=== PATIENT | male | born 1960 | race Caucasian/White ===

== ENCOUNTER 2024-09-24 20:13 | Inpatient (IN) | payer OTHER ==
[~2024-09-24] VITALS: Ht 185.4 cm; Wt 109.3 kg
[2024-09-24] MEDS: SODIUM CHLORIDE 0.9% (SEPSIS BOLUS) IV ONE (21:07)
[2024-09-24] MEDS: PIPERACILLIN/TAZO 3.375G/50ML 50 ML IV ONE (21:23)
[2024-09-24 21:37] LABS: HEMATOCRIT. 40.4 % (42.0-52.0); MEAN CORPUSCULAR HEMOGLOBIN 29.7 pg (28.0-32.0); MEAN CORPUSCULAR HGB CONC 32.3 g/dL (31.0-37.0); MEAN PLATELET VOLUME 10.5 fl (7.4-10.4); PLATELET 218 x1000/uL (130-400); RED BLOOD CELL COUNT 4.39 mill/uL (4.7-6.1); RED CELL DISTRIBUTION WIDTH 15.4 % (11.6-14.6); WHITE BLOOD COUNT 10.3 x1000/uL (4.5-11.0)
[2024-09-24 21:40] LABS: DIFFERENTIAL COMMENT 1
[2024-09-24 21:41] LABS: INR 1.2; PROTHROMBIN TIME 12.4 sec (9.6-11.0)
[2024-09-24 21:42] LABS: CHLORIDE 102 mEq/L (98-107); POTASSIUM 3.5 mEq/L (3.5-5.1); SODIUM 140 mEq/L (136-145)
[2024-09-24 21:43] LABS: CALCIUM 8.3 mg/dL (8.7-10.4); CARBON DIOXIDE 30 mEq/L (21-32)
[2024-09-24 21:48] LABS: CREATININE 0.9 mg/dL (0.6-1.3); GLUCOSE 99 mg/dL (70-105); UREA NITROGEN BLOOD 20 mg/dL (9-23)
[2024-09-24 21:50] LABS: ALANINE AMINOTRANSFERASE 77 IU/L (10-49); ALBUMIN 3.1 g/dL (3.2-4.8); ASPARTATE AMINOTRANSFERASE 30 IU/L (<34); BILIRUBIN DIRECT 0.5 mg/dL (<=3.0); PROTEIN TOTAL 5.7 g/dL (6.0-8.3)
[2024-09-24 22:08] LABS: ETHANOL BLOOD < 10 mg/dL (<10)
[2024-09-24 22:17] LABS: TROPONIN I HIGH SENSITIVITY 60 ng/L (3.0-53)
[2024-09-24 22:24] LABS: LACTIC ACID 3.8 mmol/L (0.4-2.0)
[2024-09-24] MEDS: VANCOMYCIN 1G PREMIX 200 ML IV ONE (22:58)
[2024-09-24 23:04] LABS: CLARITY URINE CLEAR (CLEAR); COLOR URINE YELLOW (YELLOW); GLUCOSE URINE NEGATIVE (NEGATIVE); KETONES URINE NEGATIVE (NEGATIVE); LEUKOCYTE ESTERASE URINE NEGATIVE (NEGATIVE); NITRITE URINE NEGATIVE (NEGATIVE); OCCULT BLOOD URINE NEGATIVE (NEGATIVE); PH URINE 6.5 (4.5-8.0); PROTEIN URINE NEGATIVE (NEGATIVE); SPECIFIC GRAVITY URINE 1.015 (1.005-1.030); UROBILINOGEN URINE 0.2 E.U./dL (0.2-1.0)
[2024-09-24 23:14] LABS: *AMPHETAMINES SCREEN URINE PRESUMPTIVE POSITIVE (NEGATIVE); *BARBITURATES SCREEN URINE NEGATIVE (NEGATIVE); *BENZODIAZEPINES SCREEN URINE NEGATIVE (NEGATIVE); *COCAINE SCREEN URINE NEGATIVE (NEGATIVE); METHADONE URINE SCREEN NEGATIVE (NEGATIVE); OPIATES URINE SCREEN NEGATIVE (NEGATIVE)
[2024-09-24 23:15] LABS: CANNABINOID URINE SCREEN PRESUMPTIVE POSITIVE (NEGATIVE); ECSTASY MDMA SCREEN URINE NEGATIVE (NEGATIVE); PHENCYCLIDINE URINE SCREEN NEGATIVE (NEGATIVE)
[2024-09-24] MEDS: FUROSEMIDE 40MG/4ML VIAL IVP ONE (23:53)
[2024-09-25 00:01] LABS: ANISOCYTOSIS 1+; PLATELET ESTIMATE NORMAL
[2024-09-25] MEDS ORDERED: IPRATROPIUM/ALBUTEROL 0.5-3(2.5)MG/3ML NEB HHN PRN (00:15)
[2024-09-25] MEDS ORDERED: ACETAMINOPHEN 325MG TABLET PO PRN (00:15)
[2024-09-25] MEDS ORDERED: CLONIDINE 0.1MG TABLET PO PRN (00:15)
[2024-09-25] MEDS ORDERED: DOCUSATE SODIUM 100MG CAPSULE PO PRN (00:15)
[2024-09-25] MEDS ORDERED: ONDANSETRON HCL 4MG/2ML INJ IV PRN (00:15)
[2024-09-25] MEDS ORDERED: MAGNESIUM/ALUMINUM HYDROXIDE/SIMETHICONE 30ML UDC PO PRN (00:15)
[2024-09-25] MEDS ORDERED: KETOROLAC 10MG TABLET PO PRN (00:30)
[2024-09-25] MEDS ORDERED: KETOROLAC 15MG/ML VIAL IV PRN (00:30)
[2024-09-25] MEDS: MORPHINE SULFATE 2 MG/ML INJ (NOT FOR IM USE) IV PRN (01:45)
[2024-09-25 01:47] LABS: IRON 29 ug/dL (65-175)
[2024-09-25 01:50] LABS: PHOSPHORUS 2.8 mg/dL (2.5-4.9); TOTAL IRON BINDING CAPACITY 251 ug/dl (250-425)
[2024-09-25 02:11] LABS: TROPONIN I HIGH SENSITIVITY 68 ng/L (3.0-53)
[2024-09-25] MEDS: LORAZEPAM 2MG/ML INJ IV PRN ×2 (03:22→15:49)
[2024-09-25 04:23] LABS: FERRITIN 108 ng/mL (22-322); VITAMIN B12 SERUM 728 pg/mL (211-911)
[2024-09-25 04:34] LABS: HEPATITIS B SURFACE ANTIGEN NEGATIVE (Negative)
[2024-09-25 04:55] LABS: HEPATITIS A AB IGM NEGATIVE (Negative); HEPATITIS B CORE AB IGM NEGATIVE (Negative)
[2024-09-25 04:56] LABS: HEPATITIS C AB NON REACTIVE (Neg) (Negative)
[2024-09-25] MEDS: PIPERACILLIN/TAZO 3.375G/50ML 50 ML IV SCH (06:05)
[2024-09-25] MEDS: MAGNESIUM 4 G PREMIX 100 ML IV NR (06:30)
[2024-09-25] MEDS: FOLIC ACID 1MG TABLET PO SCH (09:00)
[2024-09-25] MEDS: MULTIVITAMINS,THER W-MINERALS TABLET PO SCH (09:00)
[2024-09-25] MEDS: THIAMINE HCL 100MG TABLET PO SCH (09:00)
[2024-09-25] MEDS: FUROSEMIDE 40MG/4ML VIAL IV SCH (09:22)
[2024-09-25] MEDS: ENOXAPARIN 40MG/0.4ML SYR SUBCUT SCH (09:22)
[2024-09-25] MEDS: PANTOPRAZOLE SODIUM 40 MG/VIAL IV SCH (09:22)
[2024-09-25] MEDS: LABETALOL 5MG/ML 4ML INJ IV NR ×2 (09:50→11:25)
[2024-09-25] MEDS: FOLIC ACID 1 MG, THIAMINE HCL 100 MG, MVI, ADULT NO.1 10 ML in DEXTROSE 5% WATER 1,000 ML IV ONE (10:05)
[2024-09-25] MEDS: VANCOMYCIN 1.25GM/250ML 250 ML IV SCH (11:59)
[2024-09-25] MEDS ORDERED: CHLORDIAZEPOXIDE 5 MG CAPSULE PO SCH (14:00)
[2024-09-25] MEDS: CHLORDIAZEPOXIDE 25MG CAPSULE PO SCH (14:00)
[2024-09-25 16:11] VITALS: BP 141/99; PULSE 136; RESP 18; TEMP 36.5
[2024-09-25 16:19] VITALS: BP 141/99; PULSE 136; RESP 18; TEMP 36.5
[2024-09-25 20:00] VITALS: BP 145/122; PULSE 137; RESP 16; TEMP 36.6; O2SAT 94
[2024-09-25 22:14] LABS: CREATINE KINASE MB FRACTION 1.3 ng/mL (0.5-3.6)
[2024-09-26] VITALS (8 sets, daily range): BP systolic 121–154; BP diastolic 94–118; PULSE 137–149; RESP 16–25; TEMP 36.2–36.8; O2SAT 96–100
[2024-09-26 07:41] LABS: BASOPHILS % 0.7 % (0.0-2.0); EOSINOPHILS % 2.3 % (0.0-5.0); HEMATOCRIT. 39.7 % (42.0-52.0); HEMOGLOBIN. 12.8 g/dL (14.0-18.0); LYMPHOCYTES % 13.2 % (20.0-50.0); MEAN CORPUSCULAR HEMOGLOBIN 29.5 pg (28.0-32.0); MEAN CORPUSCULAR HGB CONC 32.2 g/dL (31.0-37.0); MEAN CORPUSCULAR VOLUME 91.7 fL (80.0-94.0); MEAN PLATELET VOLUME 10.8 fl (7.4-10.4); MONOCYTES % 8.7 % (2.0-8.0); NEUTROPHILS % 75.1 % (40.0-76.0); PLATELET 194 x1000/uL (130-400); RED BLOOD CELL COUNT 4.34 mill/uL (4.7-6.1); RED CELL DISTRIBUTION WIDTH 15.4 % (11.6-14.6); WHITE BLOOD COUNT 8.9 x1000/uL (4.5-11.0)
[2024-09-26] MEDS: LORAZEPAM 2MG/ML INJ IV NR (08:05)
[2024-09-26 08:29] LABS: CALCIUM 8.5 mg/dL (8.7-10.4); CHLORIDE 100 mEq/L (98-107); POTASSIUM 3.6 mEq/L (3.5-5.1); SODIUM 137 mEq/L (136-145)
[2024-09-26 08:30] LABS: CARBON DIOXIDE 31 mEq/L (21-32)
[2024-09-26 08:34] LABS: T4 FREE 1.06 ng/dL (0.89-1.76); THYROID STIMULATING HORMONE 2.44 uIU/mL (0.55-4.78)
[2024-09-26 08:35] LABS: CREATININE 0.8 mg/dL (0.6-1.3); GLUCOSE 95 mg/dL (70-105)
[2024-09-26 08:36] LABS: LDL CHOLESTEROL 59 mg/dL (5-100); TRIGLYCERIDE 51 mg/dL (0-150); UREA NITROGEN BLOOD 17 mg/dL (9-23)
[2024-09-26 08:37] LABS: CHOLESTEROL 104 mg/dL (<200); HDL CHOLESTEROL 32 mg/dL (>55)
[2024-09-26] MEDS: HALOPERIDOL 5MG TABLET PO PRN (17:33)
[2024-09-26] MEDS: CHLORDIAZEPOXIDE 25MG CAPSULE PO SCH (21:07)
[2024-09-26] MEDS: VANCOMYCIN 1.5GM/250ML IV SCH (21:52)
[2024-09-27] VITALS (7 sets, daily range): BP systolic 111–136; BP diastolic 79–118; PULSE 132–148; RESP 15–30; TEMP 36.4–36.8; O2SAT 97–100
[2024-09-27] MEDS: HALOPERIDOL LACTATE 5MG/ML VIAL IM PRN (09:08)
[2024-09-27] MEDS: METOPROLOL TARTRATE 25MG TABLET PO SCH (11:31)
[2024-09-27] MEDS: TAMSULOSIN HCL 0.4MG SR CAPSULE PO SCH (13:04)
[2024-09-27] MEDS: QUETIAPINE FUMARATE 50MG TABLET PO NR (13:05)
[2024-09-27] MEDS: QUETIAPINE FUMARATE 50MG TABLET PO SCH (21:14)
[2024-09-27] MEDS: DIPHENHYDRAMINE 50MG/ML VIAL IV PRN (21:16)
[2024-09-27] MEDS: LORAZEPAM 2MG/ML INJ IV PRN (21:16)
[2024-09-28] VITALS: BP 121/81; PULSE 140; RESP 20; TEMP 36.2; O2SAT 100
[2024-09-28] MEDS: DILTIAZEM HCL 5MG/ML 5ML VIAL IV NR (00:38)
[2024-09-28 01:55] LABS: CHLORIDE 99 mEq/L (98-107); POTASSIUM 3.3 mEq/L (3.5-5.1); SODIUM 140 mEq/L (136-145)
[2024-09-28 01:56] LABS: CALCIUM 8.8 mg/dL (8.7-10.4); CARBON DIOXIDE 33 mEq/L (21-32)
[2024-09-28 02:00] LABS: BASOPHILS % 0.6 % (0.0-2.0); DIFFERENTIAL COMMENT 0; EOSINOPHILS % 0.9 % (0.0-5.0); HEMATOCRIT. 39.3 % (42.0-52.0); HEMOGLOBIN. 12.8 g/dL (14.0-18.0); LYMPHOCYTES % 15.5 % (20.0-50.0); MEAN CORPUSCULAR HEMOGLOBIN 28.9 pg (28.0-32.0); MEAN CORPUSCULAR HGB CONC 32.7 g/dL (31.0-37.0); MEAN CORPUSCULAR VOLUME 88.6 fL (80.0-94.0); MEAN PLATELET VOLUME 10.5 fl (7.4-10.4); MONOCYTES % 11.5 % (2.0-8.0); NEUTROPHILS % 71.5 % (40.0-76.0); PLATELET 180 x1000/uL (130-400); RED BLOOD CELL COUNT 4.43 mill/uL (4.7-6.1); RED CELL DISTRIBUTION WIDTH 15.4 % (11.6-14.6); WHITE BLOOD COUNT 9.6 x1000/uL (4.5-11.0)
[2024-09-28 02:01] LABS: GLUCOSE 93 mg/dL (70-105); UREA NITROGEN BLOOD 21 mg/dL (9-23)
[2024-09-28] MEDS: MAGNESIUM 2 G PREMIX 50 ML IV NR ×2 (03:47→11:26)
[2024-09-28 04:00] VITALS: BP 100/75; PULSE 96; RESP 22; TEMP 36.4; O2SAT 100
[2024-09-28] MEDS ORDERED: KCL 20MEQ/100ML PREMIX 100 ML IV SCH (08:15)
[2024-09-28 08:19] VITALS: BP 134/114; PULSE 108; RESP 14; TEMP 36.7; O2SAT 100
[2024-09-28 08:30] LABS: BASOPHILS % 0.6 % (0.0-2.0); DIFFERENTIAL COMMENT 0; EOSINOPHILS % 0.9 % (0.0-5.0); HEMATOCRIT. 37.9 % (42.0-52.0); HEMOGLOBIN. 12.3 g/dL (14.0-18.0); LYMPHOCYTES % 12.7 % (20.0-50.0); MEAN CORPUSCULAR HEMOGLOBIN 29.2 pg (28.0-32.0); MEAN CORPUSCULAR HGB CONC 32.5 g/dL (31.0-37.0); MEAN CORPUSCULAR VOLUME 89.8 fL (80.0-94.0); MEAN PLATELET VOLUME 10.8 fl (7.4-10.4); MONOCYTES % 10.3 % (2.0-8.0); NEUTROPHILS % 75.5 % (40.0-76.0); PLATELET 166 x1000/uL (130-400); RED BLOOD CELL COUNT 4.22 mill/uL (4.7-6.1); RED CELL DISTRIBUTION WIDTH 15.5 % (11.6-14.6); WHITE BLOOD COUNT 9.8 x1000/uL (4.5-11.0)
[2024-09-28 08:32] LABS: CHLORIDE 101 mEq/L (98-107); POTASSIUM 3.3 mEq/L (3.5-5.1); SODIUM 141 mEq/L (136-145)
[2024-09-28 08:33] LABS: CALCIUM 8.6 mg/dL (8.7-10.4); CARBON DIOXIDE 31 mEq/L (21-32)
[2024-09-28 08:38] LABS: CREATININE 0.8 mg/dL (0.6-1.3); GLUCOSE 91 mg/dL (70-105); UREA NITROGEN BLOOD 21 mg/dL (9-23)
[2024-09-28 12:00] VITALS: BP 145/126; PULSE 101; RESP 18; TEMP 36.8; O2SAT 100
[2024-09-28] MEDS: POTASSIUM CHLORIDE 40MEQ in DEXT 5% WATER 250ML IV NR (13:00)
[2024-09-28] MEDS: METOPROLOL SUCCINATE 50MG ER TABLET PO SCH (13:00)
[2024-09-28 16:00] VITALS: BP 108/92; PULSE 96; RESP 12; TEMP 36.7; O2SAT 100
[2024-09-28 20:00] VITALS: BP 98/69; PULSE 89; RESP 20; TEMP 36.6; O2SAT 97
[2024-09-28 21:20] LABS: HEMATOCRIT 34.8 % (42.0-52.0); HEMOGLOBIN 11.1 g/dL (14.0-18.0); MEAN CORPUSCULAR HEMOGLOBIN 28.8 pg (28.0-32.0); MEAN CORPUSCULAR VOLUME 89.9 fL (80.0-94.0); PLATELET 161 x1000/uL (130-400); RED BLOOD CELL COUNT 3.87 mill/uL (4.7-6.1); RED CELL DISTRIBUTION WIDTH 15.1 % (11.6-14.6)
[2024-09-28 21:25] LABS: POTASSIUM 3.7 mEq/L (3.5-5.1)
[2024-09-28 21:34] LABS: AMMONIA 19 uMol/L (<32)
[2024-09-28] MEDS: CHLORDIAZEPOXIDE 25MG CAPSULE PO SCH (22:12)
[2024-09-29] VITALS: BP 98/80; PULSE 90; RESP 19; TEMP 36.2; O2SAT 99
[2024-09-29 04:00] VITALS: BP 107/98; PULSE 92; RESP 28; TEMP 36.8; O2SAT 100
[2024-09-29 06:50] LABS: DIFFERENTIAL COMMENT 0; EOSINOPHILS % 1.6 % (0.0-5.0); HEMATOCRIT. 32.3 % (42.0-52.0); HEMOGLOBIN. 10.6 g/dL (14.0-18.0); LYMPHOCYTES % 17.3 % (20.0-50.0); MEAN CORPUSCULAR HEMOGLOBIN 29.2 pg (28.0-32.0); MEAN CORPUSCULAR HGB CONC 32.8 g/dL (31.0-37.0); MEAN CORPUSCULAR VOLUME 88.9 fL (80.0-94.0); MEAN PLATELET VOLUME 11.2 fl (7.4-10.4); MONOCYTES % 8.2 % (2.0-8.0); NEUTROPHILS % 71.9 % (40.0-76.0); PLATELET 150 x1000/uL (130-400); RED BLOOD CELL COUNT 3.63 mill/uL (4.7-6.1); RED CELL DISTRIBUTION WIDTH 15.1 % (11.6-14.6)
[2024-09-29 06:55] LABS: CHLORIDE 101 mEq/L (98-107); SODIUM 144 mEq/L (136-145)
[2024-09-29 06:56] LABS: CALCIUM 8.5 mg/dL (8.7-10.4); CARBON DIOXIDE 35 mEq/L (21-32)
[2024-09-29 07:01] LABS: GLUCOSE 81 mg/dL (70-105)
[2024-09-29 07:02] LABS: UREA NITROGEN BLOOD 29 mg/dL (9-23)
[2024-09-29 08:00] VITALS: BP 102/79; PULSE 90; RESP 24; TEMP 36.6; O2SAT 96
[2024-09-29] MEDS ORDERED: KCL 20MEQ/100ML PREMIX 100 ML IV SCH (08:00)
[2024-09-29] MEDS: POTASSIUM CHLORIDE 20MEQ/PACKET PO NR (08:54)
[2024-09-29 12:00] VITALS: BP 98/68; PULSE 88; RESP 26; TEMP 36.7; O2SAT 98
[2024-09-29] MEDS: POTASSIUM CHLORIDE 40MEQ in DEXT 5% WATER 250ML IV NR (13:01)
[2024-09-29 16:00] VITALS: BP 95/75; PULSE 93; RESP 22; TEMP 36.6; O2SAT 99
[2024-09-29] MEDS: POTASSIUM CHLORIDE 20 MEQ in DEXT 5% WATER 240 ML IV NR (16:16)
[2024-09-29 20:00] VITALS: BP 124/80; PULSE 132; RESP 24; TEMP 36.5; O2SAT 96
[2024-09-29] MEDS ORDERED: OLANZAPINE 5MG TABLET ODT PO SCH (21:00)
[2024-09-29] MEDS: OLANZAPINE 5MG TABLET ODT PO SCH (21:45)
[2024-09-30] VITALS (38 sets, daily range): BP systolic 52–139; BP diastolic 35–126; PULSE 82–144; RESP 7–28; TEMP 36.4–37; O2SAT 93–100
[2024-09-30] MEDS: DILTIAZEM HCL 5MG/ML 5ML VIAL IV NR (05:57)
[2024-09-30 07:35] LABS: BASOPHILS % 1.1 % (0.0-2.0); DIFFERENTIAL COMMENT 0; EOSINOPHILS % 1.2 % (0.0-5.0); HEMATOCRIT. 28.6 % (42.0-52.0); HEMOGLOBIN. 9.2 g/dL (14.0-18.0); LYMPHOCYTES % 10.6 % (20.0-50.0); MEAN CORPUSCULAR HEMOGLOBIN 29.7 pg (28.0-32.0); MEAN CORPUSCULAR HGB CONC 32.3 g/dL (31.0-37.0); MEAN PLATELET VOLUME 11.3 fl (7.4-10.4); MONOCYTES % 6.4 % (2.0-8.0); NEUTROPHILS % 80.7 % (40.0-76.0); PLATELET 148 x1000/uL (130-400); RED BLOOD CELL COUNT 3.11 mill/uL (4.7-6.1); RED CELL DISTRIBUTION WIDTH 15.4 % (11.6-14.6); WHITE BLOOD COUNT 9.8 x1000/uL (4.5-11.0)
[2024-09-30 07:41] LABS: CARBON DIOXIDE 31 mEq/L (21-32); CHLORIDE 103 mEq/L (98-107); POTASSIUM 3.4 mEq/L (3.5-5.1); SODIUM 143 mEq/L (136-145)
[2024-09-30 07:43] LABS: CALCIUM 8.2 mg/dL (8.7-10.4)
[2024-09-30 07:47] LABS: GLUCOSE 92 mg/dL (70-105)
[2024-09-30 07:48] LABS: UREA NITROGEN BLOOD 28 mg/dL (9-23)
[2024-09-30 07:50] LABS: PHOSPHORUS 2.9 mg/dL (2.5-4.9)
[2024-09-30] MEDS: DIGOXIN 125MCG TABLET PO SCH (08:15)
[2024-09-30] MEDS: QUETIAPINE FUMARATE 50MG TABLET PO SCH (08:16)
[2024-09-30] MEDS ORDERED: NALOXONE HCL 0.4MG/ML VIAL IV PRN (08:30)
[2024-09-30] MEDS: LORAZEPAM 2MG/ML INJ IV PRN (10:31)
[2024-09-30] MEDS: POTASSIUM CHLORIDE 20MEQ TABLET SR PO NR (14:32)
[2024-09-30 15:36] LABS: HEMATOCRIT 24.5 % (42.0-52.0); HEMOGLOBIN 7.6 g/dL (14.0-18.0)
[2024-09-30] MEDS ORDERED: NOREPINEPHRINE 8MG/250ML PMX 250 ML IV PRN (17:30)
[2024-09-30 18:01] LABS: HEMATOCRIT 22.5 % (42.0-52.0); HEMOGLOBIN 7.3 g/dL (14.0-18.0)
[2024-09-30 18:10] LABS: CHLORIDE 107 mEq/L (98-107); POTASSIUM 3.7 mEq/L (3.5-5.1); SODIUM 144 mEq/L (136-145)
[2024-09-30 18:11] LABS: CALCIUM 8.1 mg/dL (8.7-10.4); CARBON DIOXIDE 30 mEq/L (21-32)
[2024-09-30 18:16] LABS: GLUCOSE 106 mg/dL (70-105); UREA NITROGEN BLOOD 26 mg/dL (9-23)
[2024-09-30] MEDS: MAGNESIUM 1 G PREMIX 100 ML IV NR (18:19)
[2024-09-30] MEDS: PANTOPRAZOLE SODIUM 40 MG/VIAL IV SCH (18:20)
[2024-09-30] MEDS: SODIUM CHLORIDE 0.9% 1,000 ML IV SCH (18:20)
[2024-09-30] MEDS: MORPHINE SULFATE 2 MG/ML INJ (NOT FOR IM USE) IV PRN (23:11)
[2024-10-01] VITALS (101 sets, daily range): BP systolic 77–133; BP diastolic 57–101; PULSE 81–161; RESP 8–36; TEMP 36.33624–36.8; O2SAT 95–100
[2024-10-01 00:43] LABS: HEMOGLOBIN 6.8 g/dL (14.0-18.0)
[2024-10-01 00:44] LABS: HEMATOCRIT 20.9 % (42.0-52.0)
[2024-10-01] MEDS: OCTREOTIDE 1,000 MCG in SODIUM CHLORIDE 0.9% 98 ML IV SCH (06:04)
[2024-10-01] MEDS: AMIODARONE 150MG/100ML D5W 100 ML IV NR (06:39)
[2024-10-01] MEDS ORDERED: AMIODARONE 360MG/200ML 200 ML IV SCH (07:15)
[2024-10-01] MEDS: AMIODARONE HCL 450 MG in DEXT 5% WATER 241 ML IV SCH (08:07)
[2024-10-01 10:54] LABS: HEMATOCRIT. 25.1 % (42.0-52.0); HEMOGLOBIN. 7.9 g/dL (14.0-18.0); MEAN CORPUSCULAR HEMOGLOBIN 28.5 pg (28.0-32.0); MEAN CORPUSCULAR HGB CONC 31.5 g/dL (31.0-37.0); MEAN CORPUSCULAR VOLUME 90.7 fL (80.0-94.0); PLATELET 160 x1000/uL (130-400); RED BLOOD CELL COUNT 2.77 mill/uL (4.7-6.1); RED CELL DISTRIBUTION WIDTH 15.6 % (11.6-14.6)
[2024-10-01 10:56] LABS: DIFFERENTIAL COMMENT 1; POTASSIUM 3.9 mEq/L (3.5-5.1)
[2024-10-01 11:06] LABS: CREATININE 1.4 mg/dL (0.6-1.3)
[2024-10-01] MEDS: DEXT 5%/0.9% NACL 1,000 ML IV SCH (12:30)
[2024-10-01 13:20] LABS: AMMONIA 29 uMol/L (<32)
[2024-10-01 13:29] LABS: ANISOCYTOSIS 1+; PLATELET ESTIMATE NORMAL
[2024-10-01] MEDS: HALOPERIDOL LACTATE 5MG/ML VIAL IM NR (15:23)
[2024-10-01] MEDS: IRON SUCROSE COMPLEX 100 MG/5 ML ML IV SCH (17:22)
[2024-10-01] MEDS: SUCRALFATE 1G TABLET PO SCH (17:22)
[2024-10-01] MEDS: RISPERIDONE 1MG TABLET PO SCH (20:47)
[2024-10-02] VITALS (92 sets, daily range): BP systolic 92–137; BP diastolic 62–123; PULSE 61–117; RESP 0–35; TEMP 35.8–37.16964; O2SAT 88–100
[2024-10-02 00:28] LABS: BASOPHILS % 0.3 % (0.0-2.0); DIFFERENTIAL COMMENT 0; EOSINOPHILS % 0.1 % (0.0-5.0); LYMPHOCYTES % 8.1 % (20.0-50.0); MEAN CORPUSCULAR HEMOGLOBIN 29.2 pg (28.0-32.0); MEAN CORPUSCULAR HGB CONC 32.3 g/dL (31.0-37.0); MEAN CORPUSCULAR VOLUME 90.5 fL (80.0-94.0); MEAN PLATELET VOLUME 11.6 fl (7.4-10.4); MONOCYTES % 6.7 % (2.0-8.0); NEUTROPHILS % 84.8 % (40.0-76.0); PLATELET 154 x1000/uL (130-400); RED BLOOD CELL COUNT 2.14 mill/uL (4.7-6.1); RED CELL DISTRIBUTION WIDTH 15.4 % (11.6-14.6)
[2024-10-02 00:32] LABS: HEMATOCRIT. 19.4 % (42.0-52.0); HEMOGLOBIN. 6.3 g/dL (14.0-18.0)
[2024-10-02] MEDS: LORAZEPAM 2MG/ML INJ IV NR (04:57)
[2024-10-02 05:11] LABS: BASOPHILS % 0.5 % (0.0-2.0); DIFFERENTIAL COMMENT 0; EOSINOPHILS % 0.5 % (0.0-5.0); HEMATOCRIT. 21.2 % (42.0-52.0); LYMPHOCYTES % 10.1 % (20.0-50.0); MEAN CORPUSCULAR HEMOGLOBIN 28.3 pg (28.0-32.0); MEAN CORPUSCULAR HGB CONC 31.3 g/dL (31.0-37.0); MEAN CORPUSCULAR VOLUME 90.4 fL (80.0-94.0); MEAN PLATELET VOLUME 11.7 fl (7.4-10.4); MONOCYTES % 8.7 % (2.0-8.0); NEUTROPHILS % 80.2 % (40.0-76.0); PLATELET 153 x1000/uL (130-400); RED BLOOD CELL COUNT 2.34 mill/uL (4.7-6.1); RED CELL DISTRIBUTION WIDTH 16.7 % (11.6-14.6); WHITE BLOOD COUNT 14.3 x1000/uL (4.5-11.0)
[2024-10-02 05:27] LABS: CHLORIDE 110 mEq/L (98-107); POTASSIUM 4.3 mEq/L (3.5-5.1); SODIUM 148 mEq/L (136-145)
[2024-10-02 05:29] LABS: CARBON DIOXIDE 29 mEq/L (21-32)
[2024-10-02 05:30] LABS: CALCIUM 8.2 mg/dL (8.7-10.4)
[2024-10-02 05:35] LABS: GLUCOSE 104 mg/dL (70-105); UREA NITROGEN BLOOD 34 mg/dL (9-23)
[2024-10-02 05:36] LABS: ALANINE AMINOTRANSFERASE 22 IU/L (10-49); ALBUMIN 2.7 g/dL (3.2-4.8)
[2024-10-02 05:37] LABS: ASPARTATE AMINOTRANSFERASE 32 IU/L (<34); BILIRUBIN DIRECT 0.5 mg/dL (<=3.0); BILIRUBIN TOTAL 1.2 mg/dL (0.1-1.0); HEMOGLOBIN. 6.6 g/dL (14.0-18.0); PHOSPHORUS 4.4 mg/dL (2.5-4.9); PROTEIN TOTAL 4.9 g/dL (6.0-8.3)
[2024-10-02 06:26] LABS: FOLIC ACID (FOLATE) SERUM 14.21 ng/mL (>5.38)
[2024-10-02 10:35] LABS: BASOPHILS % 0.3 % (0.0-2.0); EOSINOPHILS % 0.7 % (0.0-5.0); HEMATOCRIT. 24.1 % (42.0-52.0); HEMOGLOBIN. 7.6 g/dL (14.0-18.0); LYMPHOCYTES % 11.5 % (20.0-50.0); MEAN CORPUSCULAR HEMOGLOBIN 28.3 pg (28.0-32.0); MEAN CORPUSCULAR HGB CONC 31.6 g/dL (31.0-37.0); MEAN CORPUSCULAR VOLUME 89.6 fL (80.0-94.0); MEAN PLATELET VOLUME 11.5 fl (7.4-10.4); MONOCYTES % 9.8 % (2.0-8.0); NEUTROPHILS % 77.7 % (40.0-76.0); PLATELET 159 x1000/uL (130-400); RED BLOOD CELL COUNT 2.69 mill/uL (4.7-6.1); RED CELL DISTRIBUTION WIDTH 16.2 % (11.6-14.6); WHITE BLOOD COUNT 14.7 x1000/uL (4.5-11.0)
[2024-10-02] MEDS: DEXMEDETOMIDINE 400 MCG/100 ML 100 ML IV PRN (13:03)
[2024-10-02] MEDS: RISPERIDONE 1MG TABLET PO SCH (20:09)
[2024-10-02 21:57] LABS: HEMATOCRIT 23.1 % (42.0-52.0); HEMOGLOBIN 7.4 g/dL (14.0-18.0)
[2024-10-03] VITALS (61 sets, daily range): BP systolic 91–138; BP diastolic 60–118; PULSE 80–131; RESP 10–31; TEMP 36–36.8; O2SAT 92–100
[2024-10-03 04:51] LABS: POTASSIUM 3.9 mEq/L (3.5-5.1)
[2024-10-03 04:53] LABS: CALCIUM 7.9 mg/dL (8.7-10.4)
[2024-10-03 04:57] LABS: CREATININE 1.3 mg/dL (0.6-1.3)
[2024-10-03 05:00] LABS: BILIRUBIN TOTAL 0.8 mg/dL (0.1-1.0)
[2024-10-03 05:12] LABS: AMMONIA 39 uMol/L (<32)
[2024-10-03 06:08] LABS: BASOPHILS % 0.5 % (0.0-2.0); EOSINOPHILS % 1.3 % (0.0-5.0); HEMATOCRIT. 25.5 % (42.0-52.0); HEMOGLOBIN. 8.2 g/dL (14.0-18.0); LYMPHOCYTES % 10.8 % (20.0-50.0); MEAN CORPUSCULAR HEMOGLOBIN 28.7 pg (28.0-32.0); MEAN CORPUSCULAR HGB CONC 32.2 g/dL (31.0-37.0); MEAN CORPUSCULAR VOLUME 89.2 fL (80.0-94.0); MEAN PLATELET VOLUME 10.9 fl (7.4-10.4); MONOCYTES % 7.2 % (2.0-8.0); NEUTROPHILS % 80.2 % (40.0-76.0); PLATELET 122 x1000/uL (130-400); RED BLOOD CELL COUNT 2.86 mill/uL (4.7-6.1); RED CELL DISTRIBUTION WIDTH 20.5 % (11.6-14.6); WHITE BLOOD COUNT 10.6 x1000/uL (4.5-11.0)
[2024-10-03] MEDS ORDERED: AMIODARONE HCL 900 MG in DEXT 5% WATER 482 ML IV SCH (08:45)
[2024-10-03] MEDS ORDERED: PANTOPRAZOLE SODIUM 40 MG/VIAL IV SCH (09:00)
[2024-10-03] MEDS: FAMOTIDINE 20MG/2ML VIAL IV SCH (10:04)
[2024-10-03] MEDS: DEXTROSE 5% WATER 1,000 ML IV SCH (10:05)
[2024-10-03 10:51] LABS: BG BASE EXCESS 4.3 mmol/L (-2.0-3.0); BG CARBOXYHEMOGLOBIN 1.4 % (0.5-1.5); BG DEOXYHEMOGLOBIN 4.9 % (0.0-5.0); BG FRACTION INSPIRED OXYGEN 40; BG METHEMOGLOBIN 0.3 % (0.5-1.5); BG OXYHEMOGLOBIN 93.4 % (94.0-98.0); BG PCO2 38.5 mmHg (35.0-48.0); BG PO2 68.6 mmHg (83.0-108.0); BG SAMPLE SITE RIGHT RADIAL; BG TOTAL HEMOGLOBIN 8.7 g/dL (13.5-17.5); BG VENT MODE NASAL CANNULA
[2024-10-03] MEDS ORDERED: LACTULOSE ENEMA 1,000ML BOTTLE PR NR (11:00)
[2024-10-03] MEDS ORDERED: IPRATROPIUM/ALBUTEROL 0.5-3(2.5)MG/3ML NEB HHN PRN (12:15)
[2024-10-03 16:31] LABS: HEMATOCRIT 24.1 % (42.0-52.0); HEMOGLOBIN 7.7 g/dL (14.0-18.0)
[2024-10-03] MEDS: RISPERIDONE 0.5MG TABLET PO SCH (16:45)
[2024-10-03] MEDS ORDERED: IRON SUCROSE COMPLEX 100 MG/5 ML ML IV SCH (20:00)
[2024-10-03] MEDS: IPRATROPIUM/ALBUTEROL 0.5-3(2.5)MG/3ML NEB HHN SCH (20:20)
[2024-10-03] MEDS: ACETYLCYSTEINE 200MG/ML 20% VIAL 4ML INH SCH (20:20)
[2024-10-03] MEDS: RIFAXIMIN 550 MG TABLET NG SCH (21:00)
[2024-10-03] MEDS: IRON SUCROSE COMPLEX 100 MG/5 ML ML IV SCH (22:41)
[2024-10-04] VITALS (20 sets, daily range): BP systolic 104–144; BP diastolic 69–102; PULSE 77–102; RESP 15–28; TEMP 36.1–36.9; O2SAT 82–100
[2024-10-04 07:38] LABS: INR 1.3; PROTHROMBIN TIME 13.8 sec (9.6-11.0)
[2024-10-04 07:39] LABS: CHLORIDE 113 mEq/L (98-107); POTASSIUM 3.1 mEq/L (3.5-5.1); SODIUM 149 mEq/L (136-145)
[2024-10-04 07:40] LABS: CALCIUM 8.1 mg/dL (8.7-10.4); CARBON DIOXIDE 29 mEq/L (21-32)
[2024-10-04 07:45] LABS: CREATININE 1.3 mg/dL (0.6-1.3); GLUCOSE 92 mg/dL (70-105)
[2024-10-04 07:46] LABS: UREA NITROGEN BLOOD 25 mg/dL (9-23)
[2024-10-04 07:47] LABS: ALANINE AMINOTRANSFERASE 21 IU/L (10-49); ALBUMIN 2.6 g/dL (3.2-4.8); ASPARTATE AMINOTRANSFERASE 33 IU/L (<34)
[2024-10-04 07:48] LABS: BILIRUBIN DIRECT 0.5 mg/dL (<=3.0); BILIRUBIN TOTAL 1.2 mg/dL (0.1-1.0); PROTEIN TOTAL 4.8 g/dL (6.0-8.3)
[2024-10-04 07:52] LABS: AMMONIA < 17 uMol/L (<32)
[2024-10-04 08:28] LABS: BASOPHILS % 0.5 % (0.0-2.0); DIFFERENTIAL COMMENT 0; EOSINOPHILS % 0.8 % (0.0-5.0); HEMATOCRIT. 21.2 % (42.0-52.0); LYMPHOCYTES % 10.3 % (20.0-50.0); MEAN CORPUSCULAR HEMOGLOBIN 27.8 pg (28.0-32.0); MEAN CORPUSCULAR VOLUME 86.8 fL (80.0-94.0); MEAN PLATELET VOLUME 11.3 fl (7.4-10.4); NEUTROPHILS % 80.4 % (40.0-76.0); PLATELET 149 x1000/uL (130-400); RED BLOOD CELL COUNT 2.45 mill/uL (4.7-6.1); RED CELL DISTRIBUTION WIDTH 18.9 % (11.6-14.6); WHITE BLOOD COUNT 11.6 x1000/uL (4.5-11.0)
[2024-10-04 09:18] LABS: HEMOGLOBIN. 6.8 g/dL (14.0-18.0)
[2024-10-04] MEDS: POTASSIUM CHLORIDE 20MEQ TABLET SR PO NR (12:42)
[2024-10-04 22:19] LABS: HEMATOCRIT 26.3 % (42.0-52.0); HEMOGLOBIN 8.4 g/dL (14.0-18.0)
[2024-10-05] VITALS (12 sets, daily range): BP systolic 125–159; BP diastolic 59–105; PULSE 82–107; RESP 17–29; TEMP 36.1–36.8; O2SAT 96–100
[2024-10-05 07:04] LABS: BASOPHILS % 0.5 % (0.0-2.0); EOSINOPHILS % 1.4 % (0.0-5.0); HEMATOCRIT. 25.2 % (42.0-52.0); HEMOGLOBIN. 8.4 g/dL (14.0-18.0); LYMPHOCYTES % 12.1 % (20.0-50.0); MEAN CORPUSCULAR HEMOGLOBIN 29.4 pg (28.0-32.0); MEAN CORPUSCULAR HGB CONC 33.3 g/dL (31.0-37.0); MEAN CORPUSCULAR VOLUME 88.5 fL (80.0-94.0); MONOCYTES % 8.8 % (2.0-8.0); NEUTROPHILS % 77.2 % (40.0-76.0); PLATELET 141 x1000/uL (130-400); RED BLOOD CELL COUNT 2.85 mill/uL (4.7-6.1); RED CELL DISTRIBUTION WIDTH 17.8 % (11.6-14.6); WHITE BLOOD COUNT 9.1 x1000/uL (4.5-11.0)
[2024-10-05 07:30] LABS: CALCIUM 8.3 mg/dL (8.7-10.4); CARBON DIOXIDE 27 mEq/L (21-32); CHLORIDE 114 mEq/L (98-107); POTASSIUM 3.2 mEq/L (3.5-5.1); SODIUM 151 mEq/L (136-145)
[2024-10-05 07:35] LABS: CREATININE 1.2 mg/dL (0.6-1.3)
[2024-10-05 07:36] LABS: GLUCOSE 89 mg/dL (70-105); UREA NITROGEN BLOOD 21 mg/dL (9-23)
[2024-10-05 07:38] LABS: PHOSPHORUS 2.3 mg/dL (2.5-4.9)
[2024-10-05] MEDS: AMIODARONE 200MG TABLET PO SCH (10:04)
[2024-10-05] MEDS: TRIAMCINOLONE ACETONIDE 0.1% CREAM 15GM TOP SCH (10:08)
[2024-10-05] MEDS: LORAZEPAM 0.5MG TABLET PO PRN (13:38)
[2024-10-05] MEDS: ACETAMINOPHEN 325MG TABLET PO PRN (13:38)
[2024-10-05] MEDS: POTASSIUM CHLORIDE 40 MEQ in DEXT 5% WATER 230 ML IV NR (13:41)
[2024-10-06] VITALS (14 sets, daily range): BP systolic 121–152; BP diastolic 90–107; PULSE 82–96; RESP 16–29; TEMP 36.2–36.8; O2SAT 81–100
[2024-10-06 11:26] LABS: BASOPHILS % 0.9 % (0.0-2.0); EOSINOPHILS % 2.6 % (0.0-5.0); HEMATOCRIT. 25.4 % (42.0-52.0); HEMOGLOBIN. 8.4 g/dL (14.0-18.0); LYMPHOCYTES % 14.6 % (20.0-50.0); MEAN CORPUSCULAR HEMOGLOBIN 29.6 pg (28.0-32.0); MEAN CORPUSCULAR VOLUME 89.8 fL (80.0-94.0); MEAN PLATELET VOLUME 10.4 fl (7.4-10.4); MONOCYTES % 10.1 % (2.0-8.0); NEUTROPHILS % 71.8 % (40.0-76.0); PLATELET 153 x1000/uL (130-400); RED BLOOD CELL COUNT 2.83 mill/uL (4.7-6.1); RED CELL DISTRIBUTION WIDTH 17.7 % (11.6-14.6); WHITE BLOOD COUNT 7.9 x1000/uL (4.5-11.0)
[2024-10-06 11:46] LABS: CHLORIDE 110 mEq/L (98-107); POTASSIUM 3.1 mEq/L (3.5-5.1); SODIUM 143 mEq/L (136-145)
[2024-10-06 11:47] LABS: CALCIUM 7.8 mg/dL (8.7-10.4); CARBON DIOXIDE 25 mEq/L (21-32)
[2024-10-06 11:52] LABS: CREATININE 1.1 mg/dL (0.6-1.3); GLUCOSE 114 mg/dL (70-105); UREA NITROGEN BLOOD 15 mg/dL (9-23)
[2024-10-06 11:54] LABS: ALANINE AMINOTRANSFERASE 18 IU/L (10-49); ALBUMIN 2.5 g/dL (3.2-4.8); ASPARTATE AMINOTRANSFERASE 24 IU/L (<34); BILIRUBIN TOTAL 1.3 mg/dL (0.1-1.0); PROTEIN TOTAL 4.8 g/dL (6.0-8.3)
[2024-10-06] MEDS: RISPERIDONE 1MG TABLET PO SCH (13:45)
[2024-10-07] VITALS (13 sets, daily range): BP systolic 96–147; BP diastolic 68–107; PULSE 72–93; RESP 10–23; TEMP 36.4–36.6; O2SAT 92–100
[2024-10-07] MEDS: POTASSIUM CHLORIDE 20MEQ/PACKET PO NR (02:32)
[2024-10-07] MEDS: POTASSIUM CHLORIDE 40 MEQ in DEXT 5% WATER 230 ML IV NR (02:47)
[2024-10-07 08:03] LABS: CHLORIDE 113 mEq/L (98-107); POTASSIUM 4.8 mEq/L (3.5-5.1); SODIUM 145 mEq/L (136-145)
[2024-10-07 08:04] LABS: CARBON DIOXIDE 27 mEq/L (21-32)
[2024-10-07 08:09] LABS: CREATININE 1.1 mg/dL (0.6-1.3); GLUCOSE 100 mg/dL (70-105); UREA NITROGEN BLOOD 13 mg/dL (9-23)
[2024-10-07 08:17] LABS: BASOPHILS % 0.5 % (0.0-2.0); EOSINOPHILS % 3.4 % (0.0-5.0); HEMATOCRIT. 28.1 % (42.0-52.0); HEMOGLOBIN. 8.9 g/dL (14.0-18.0); LYMPHOCYTES % 13.5 % (20.0-50.0); MEAN CORPUSCULAR HEMOGLOBIN 29.5 pg (28.0-32.0); MEAN CORPUSCULAR HGB CONC 31.6 g/dL (31.0-37.0); MEAN CORPUSCULAR VOLUME 93.3 fL (80.0-94.0); MEAN PLATELET VOLUME 11.3 fl (7.4-10.4); MONOCYTES % 11.5 % (2.0-8.0); NEUTROPHILS % 71.1 % (40.0-76.0); PLATELET 169 x1000/uL (130-400); RED BLOOD CELL COUNT 3.01 mill/uL (4.7-6.1); RED CELL DISTRIBUTION WIDTH 17.8 % (11.6-14.6); WHITE BLOOD COUNT 8.1 x1000/uL (4.5-11.0)
[2024-10-07 08:28] LABS: LACTIC ACID 3.6 mmol/L (0.4-2.0)
[2024-10-07 09:45] LABS: PHOSPHORUS 2.5 mg/dL (2.5-4.9)
[2024-10-07] MEDS: METOPROLOL SUCCINATE 50MG ER TABLET PO SCH (10:06)
[2024-10-07] MEDS: GUAIFENESIN 200MG/10ML SUGAR FREE UDC PO PRN (12:38)
[2024-10-07] MEDS: LORAZEPAM 2MG/ML INJ IM NR (14:23)
[2024-10-08] VITALS (16 sets, daily range): BP systolic 97–171; BP diastolic 76–102; PULSE 74–91; RESP 12–31; TEMP 36.3–36.4; O2SAT 87–99
[2024-10-08] MEDS: OXCARBAZEPINE 150MG TABLET PO SCH (13:04)
[2024-10-08] MEDS: HALOPERIDOL LACTATE 5MG/ML VIAL IM PRN (15:18)
[2024-10-08] MEDS: RISPERIDONE 1MG TABLET PO SCH (22:02)
[2024-10-09] VITALS: TEMP 36.4
[2024-10-09 06:49] LABS: CARBON DIOXIDE 26 mEq/L (21-32); CHLORIDE 108 mEq/L (98-107); POTASSIUM 3.5 mEq/L (3.5-5.1); SODIUM 140 mEq/L (136-145)
[2024-10-09 06:55] LABS: CREATININE 1.1 mg/dL (0.6-1.3); GLUCOSE 85 mg/dL (70-105)
[2024-10-09 06:56] LABS: UREA NITROGEN BLOOD 14 mg/dL (9-23)
[2024-10-09 06:58] LABS: AMMONIA < 17 uMol/L (<32); BILIRUBIN TOTAL 1.1 mg/dL (0.1-1.0)
[2024-10-09 07:12] LABS: BASOPHILS % 0.8 % (0.0-2.0); DIFFERENTIAL COMMENT 0; EOSINOPHILS % 4.1 % (0.0-5.0); HEMATOCRIT. 26.7 % (42.0-52.0); HEMOGLOBIN. 8.8 g/dL (14.0-18.0); LYMPHOCYTES % 15.2 % (20.0-50.0); MEAN CORPUSCULAR HEMOGLOBIN 29.6 pg (28.0-32.0); MEAN CORPUSCULAR VOLUME 89.9 fL (80.0-94.0); MEAN PLATELET VOLUME 11.5 fl (7.4-10.4); MONOCYTES % 10.3 % (2.0-8.0); NEUTROPHILS % 69.6 % (40.0-76.0); PLATELET 166 x1000/uL (130-400); RED BLOOD CELL COUNT 2.97 mill/uL (4.7-6.1); RED CELL DISTRIBUTION WIDTH 18.6 % (11.6-14.6); WHITE BLOOD COUNT 5.9 x1000/uL (4.5-11.0)
[2024-10-09 08:00] VITALS: PULSE 79; TEMP 36.1
[2024-10-09 10:00] VITALS: BP 137/105; PULSE 79; TEMP 36.1
[2024-10-09] MEDS: METOPROLOL SUCCINATE 50MG ER TABLET PO SCH (10:09)
[2024-10-09 17:32] VITALS: BP 121/75; PULSE 76; TEMP 36.2
[2024-10-09 20:00] VITALS: BP 123/92; PULSE 74; TEMP 36.5
[2024-10-10 04:00] VITALS: BP 126/78; PULSE 73; RESP 16; TEMP 36.3; O2SAT 97
[2024-10-10 08:00] VITALS: BP 162/109; PULSE 75; RESP 20; TEMP 35.6
[2024-10-10] MEDS: LORAZEPAM 2MG/ML INJ ONE (11:06)
[2024-10-10 12:00] VITALS: BP 119/100; PULSE 80; RESP 18; TEMP 35.7
[2024-10-10 16:00] VITALS: BP 152/95; PULSE 74; RESP 20; TEMP 36.2; O2SAT 95
[2024-10-10 20:00] VITALS: BP 125/92; PULSE 82; RESP 18; TEMP 36.4; O2SAT 97
[2024-10-11] VITALS: BP 135/89; PULSE 82; RESP 19; TEMP 36.5; O2SAT 100
[2024-10-11 04:00] VITALS: BP 138/90; PULSE 80; RESP 19; TEMP 36.3; O2SAT 99
[2024-10-11 14:00] VITALS: BP 128/79; PULSE 78; RESP 18; TEMP 36.9; O2SAT 99
[2024-10-11 18:46] VITALS: PULSE 78; RESP 18; RESP 19; TEMP 37.5
[2024-10-11 20:00] VITALS: BP 121/81; PULSE 84; RESP 20; TEMP 36.7; O2SAT 98
[2024-10-12] VITALS: BP 131/84; PULSE 87; RESP 19; TEMP 36.7; O2SAT 19
[2024-10-12 08:00] VITALS: BP 142/92; PULSE 81; RESP 20; TEMP 36; O2SAT 100
[2024-10-12 12:00] VITALS: BP 120/89; PULSE 70; RESP 20; TEMP 36; O2SAT 98
[2024-10-12 16:00] VITALS: BP 125/87; PULSE 70; RESP 20; TEMP 36.1; O2SAT 98
[2024-10-12 20:00] VITALS: BP 117/90; PULSE 71; RESP 18; TEMP 36.2; O2SAT 98
[2024-10-13 06:00] VITALS: BP 138/85; PULSE 74; RESP 19; TEMP 36; O2SAT 98
[2024-10-13 08:00] VITALS: BP 125/97; PULSE 71; RESP 20; TEMP 37; O2SAT 98
[2024-10-13] MEDS ORDERED: ONDANSETRON 4MG ODT SL PRN (11:45)
[2024-10-13 12:00] VITALS: BP 123/88; PULSE 73; RESP 19; TEMP 36.9; O2SAT 98
[2024-10-13 16:00] VITALS: BP 136/76; PULSE 75; RESP 19; TEMP 36.9; O2SAT 98
[2024-10-14] VITALS: BP 86/126; PULSE 82; RESP 19; TEMP 36.6
[2024-10-14 12:00] VITALS: BP 127/90; PULSE 75; RESP 20; TEMP 36.6; O2SAT 99
[2024-10-14 20:00] VITALS: TEMP 36.6
[2024-10-15 06:18] LABS: DIFFERENTIAL COMMENT 0; EOSINOPHILS % 1.6 % (0.0-5.0); HEMATOCRIT. 28.7 % (42.0-52.0); HEMOGLOBIN. 9.5 g/dL (14.0-18.0); LYMPHOCYTES % 14.7 % (20.0-50.0); MEAN CORPUSCULAR HEMOGLOBIN 29.2 pg (28.0-32.0); MEAN CORPUSCULAR HGB CONC 33.1 g/dL (31.0-37.0); MEAN CORPUSCULAR VOLUME 88.3 fL (80.0-94.0); MEAN PLATELET VOLUME 11.6 fl (7.4-10.4); MONOCYTES % 9.4 % (2.0-8.0); NEUTROPHILS % 73.3 % (40.0-76.0); PLATELET 211 x1000/uL (130-400); RED BLOOD CELL COUNT 3.25 mill/uL (4.7-6.1); RED CELL DISTRIBUTION WIDTH 17.6 % (11.6-14.6); WHITE BLOOD COUNT 7.8 x1000/uL (4.5-11.0)
[2024-10-15 06:35] LABS: CHLORIDE 106 mEq/L (98-107); POTASSIUM 4.1 mEq/L (3.5-5.1); SODIUM 140 mEq/L (136-145)
[2024-10-15 06:36] LABS: CALCIUM 8.8 mg/dL (8.7-10.4); CARBON DIOXIDE 26 mEq/L (21-32)
[2024-10-15 06:41] LABS: ALANINE AMINOTRANSFERASE 19 IU/L (10-49); GLUCOSE 81 mg/dL (70-105); UREA NITROGEN BLOOD 16 mg/dL (9-23)
[2024-10-15 06:42] LABS: ASPARTATE AMINOTRANSFERASE 37 IU/L (<34); PROTEIN TOTAL 5.2 g/dL (6.0-8.3)
[2024-10-15 06:43] LABS: ALBUMIN 2.9 g/dL (3.2-4.8); BILIRUBIN DIRECT 0.3 mg/dL (<=3.0); DIGOXIN 0.2 ng/mL (0.8-2.0)
[2024-10-15 06:44] LABS: BILIRUBIN TOTAL 0.7 mg/dL (0.1-1.0); PHOSPHORUS 2.7 mg/dL (2.5-4.9)
[2024-10-15 08:00] VITALS: BP 130/88; PULSE 83; RESP 20; TEMP 36.4; O2SAT 97
[2024-10-15] MEDS: FUROSEMIDE 20MG TABLET PO SCH (09:34)
[2024-10-15 12:00] VITALS: BP 125/78; PULSE 72; RESP 18; TEMP 36.3; O2SAT 96
[2024-10-15 16:00] VITALS: BP 130/85; PULSE 87; RESP 18; TEMP 36.2; O2SAT 97
[2024-10-15] MEDS: FAMOTIDINE 20MG TABLET PO SCH (20:13)
[2024-10-15] MEDS: RISPERIDONE 1MG TABLET PO SCH (20:39)
[2024-10-16] VITALS: BP 126/84; PULSE 60; RESP 19; TEMP 36.4; O2SAT 98
[2024-10-16 04:00] VITALS: BP 116/79; PULSE 74; RESP 18; TEMP 36.6; O2SAT 98
[2024-10-16 08:00] VITALS: BP 133/70; PULSE 67; RESP 18; TEMP 36.8; O2SAT 98
[2024-10-16] MEDS: FUROSEMIDE 20MG TABLET PO SCH (09:49)
[2024-10-16 12:00] VITALS: BP 134/71; PULSE 69; RESP 19; TEMP 36.9; O2SAT 99
[2024-10-16 16:00] VITALS: BP 130/72; PULSE 66; RESP 19; TEMP 37; O2SAT 99
[2024-10-16 20:00] VITALS: BP 145/78; PULSE 71; RESP 20; TEMP 36.8; O2SAT 98
[2024-10-16] MEDS: THIAMINE HCL 100MG TABLET PO SCH (20:55)
[2024-10-17 08:00] VITALS: BP 137/98; PULSE 77; RESP 20; TEMP 36.6; O2SAT 98
[2024-10-17 12:00] VITALS: BP 120/67; PULSE 69; RESP 18; TEMP 36.7; O2SAT 97
[2024-10-17 16:00] VITALS: BP 121/80; PULSE 76; RESP 18; TEMP 36.3
[2024-10-17 20:00] VITALS: BP 110/71; PULSE 79; RESP 19; TEMP 36.7; O2SAT 79
[2024-10-18] VITALS: PULSE 77; RESP 19; TEMP 36.7; O2SAT 78
[2024-10-18 04:00] VITALS: PULSE 79; RESP 19; TEMP 36.7; O2SAT 79
[2024-10-18 08:00] VITALS: BP 125/72; PULSE 72; RESP 20; TEMP 36.3; O2SAT 97
[2024-10-18 12:00] VITALS: BP 118/78; PULSE 80; RESP 20; TEMP 36.5; O2SAT 96
[2024-10-18 20:00] VITALS: BP 123/85; PULSE 79; RESP 19; TEMP 36.3; O2SAT 98
[2024-10-19] VITALS: BP 117/73; PULSE 83; RESP 19; TEMP 36.5; O2SAT 100
[2024-10-19 04:00] VITALS: BP 156/96; PULSE 87; RESP 20; TEMP 36.3; O2SAT 100
[2024-10-19 08:00] VITALS: BP 128/83; PULSE 84; RESP 20; TEMP 36.8; O2SAT 98
[2024-10-19 12:00] VITALS: BP 112/77; PULSE 77; RESP 18; TEMP 36.6; O2SAT 99
[2024-10-19] MEDS: LORAZEPAM 2MG/ML UD SYRINGE IM NR (13:28)
[2024-10-19 15:30] VITALS: BP 126/79; PULSE 75; RESP 20; TEMP 36.7; O2SAT 100
[2024-10-19 20:00] VITALS: BP 113/69; PULSE 78; RESP 19; TEMP 36.5; O2SAT 100
[2024-10-20] VITALS: BP 123/76; PULSE 76; RESP 19; TEMP 36.3; O2SAT 100
[2024-10-20 08:00] VITALS: BP 120/75; PULSE 79; RESP 18; TEMP 36.7; O2SAT 99
[2024-10-20 12:00] VITALS: BP 121/73; PULSE 80; RESP 19; TEMP 36.7; O2SAT 99
[2024-10-20 16:00] VITALS: BP 126/84; PULSE 89; RESP 20; TEMP 37.1; O2SAT 99
[2024-10-20 20:00] VITALS: BP 121/88; PULSE 85; RESP 19; TEMP 36.3; O2SAT 97
[2024-10-21] VITALS: BP 120/75; PULSE 88; RESP 20; TEMP 36.2; O2SAT 98
[2024-10-21 04:00] VITALS: BP 120/61; PULSE 89; RESP 19; TEMP 36.3; O2SAT 99
[2024-10-21 08:00] VITALS: BP 135/97; PULSE 89; RESP 20; TEMP 36.7; O2SAT 99
[2024-10-21 12:00] VITALS: BP 112/78; PULSE 70; RESP 20; TEMP 36.4; O2SAT 99
[2024-10-21 19:55] VITALS: BP 125/82; PULSE 68; RESP 18; TEMP 36.8; O2SAT 99
[2024-10-22] VITALS: BP 120/80; PULSE 86; RESP 18; TEMP 36.9; O2SAT 98
[2024-10-22 04:00] VITALS: BP 102/63; PULSE 81; RESP 19; TEMP 36.4; O2SAT 98
[2024-10-22 07:30] VITALS: BP 132/83; PULSE 79; RESP 18; TEMP 36.7; O2SAT 100
[2024-10-22 12:00] VITALS: BP 113/76; PULSE 80; RESP 20; TEMP 36.2; O2SAT 96
[2024-10-22 16:00] VITALS: BP 117/84; PULSE 77; RESP 20; TEMP 36.3; O2SAT 97
[2024-10-22 20:00] VITALS: BP 123/87; PULSE 85; RESP 19; TEMP 36.5; O2SAT 100
[2024-10-23] MEDS: LORAZEPAM 2MG/ML UD SYRINGE IV NR (00:11)
[2024-10-23] MEDS: LORAZEPAM 2MG/ML UD SYRINGE IV PRN (02:24)
[2024-10-23 04:00] VITALS: BP 137/98; PULSE 82; RESP 19; TEMP 36.3; O2SAT 100
[2024-10-23 08:00] VITALS: BP 139/89; PULSE 84; RESP 18; TEMP 36.7; O2SAT 92
[2024-10-23 09:28] LABS: BASOPHILS % 1.4 % (0.0-2.0); DIFFERENTIAL COMMENT 0; EOSINOPHILS % 1.9 % (0.0-5.0); HEMATOCRIT. 25.3 % (42.0-52.0); HEMOGLOBIN. 7.9 g/dL (14.0-18.0); LYMPHOCYTES % 13.5 % (20.0-50.0); MEAN CORPUSCULAR HEMOGLOBIN 27.5 pg (28.0-32.0); MEAN CORPUSCULAR HGB CONC 31.4 g/dL (31.0-37.0); MEAN CORPUSCULAR VOLUME 87.4 fL (80.0-94.0); MEAN PLATELET VOLUME 11.1 fl (7.4-10.4); MONOCYTES % 8.7 % (2.0-8.0); NEUTROPHILS % 74.5 % (40.0-76.0); PLATELET 131 x1000/uL (130-400); RED BLOOD CELL COUNT 2.89 mill/uL (4.7-6.1); RED CELL DISTRIBUTION WIDTH 17.7 % (11.6-14.6); WHITE BLOOD COUNT 7.5 x1000/uL (4.5-11.0)
[2024-10-23 09:43] LABS: CALCIUM 8.7 mg/dL (8.7-10.4); CARBON DIOXIDE 29 mEq/L (21-32); CHLORIDE 105 mEq/L (98-107); SODIUM 140 mEq/L (136-145)
[2024-10-23 09:49] LABS: CREATININE 0.8 mg/dL (0.6-1.3); GLUCOSE 91 mg/dL (70-105); UREA NITROGEN BLOOD 23 mg/dL (9-23)
[2024-10-23 09:51] LABS: PHOSPHORUS 3.7 mg/dL (2.5-4.9)
[2024-10-23 12:00] VITALS: BP 140/64; PULSE 84; RESP 18; TEMP 35.7; O2SAT 95
[2024-10-23 16:00] VITALS: BP 127/87; PULSE 80; RESP 18; TEMP 36.5; O2SAT 97
[2024-10-23] MEDS: MAGNESIUM OXIDE 400MG TABLET PO SCH (20:59)
[2024-10-24] VITALS: BP 138/70; PULSE 79; RESP 17; TEMP 36.8; O2SAT 99
[2024-10-24 04:00] VITALS: BP 118/69; PULSE 80; RESP 18; TEMP 36.3; O2SAT 100
[2024-10-24 08:00] VITALS: BP 120/81; PULSE 87; RESP 20; TEMP 36.4; O2SAT 100
[2024-10-24] MEDS: FUROSEMIDE 40MG TABLET PO SCH (08:39)
[2024-10-24 12:00] VITALS: BP 126/77; PULSE 71; RESP 20; TEMP 36.3; O2SAT 98
[2024-10-24 16:00] VITALS: BP 140/84; PULSE 71; RESP 20; TEMP 36.4; O2SAT 100
[2024-10-24 20:00] VITALS: BP 130/81; PULSE 87; RESP 19; TEMP 36.8; O2SAT 96
[2024-10-25 07:58] LABS: BASOPHILS % 1.2 % (0.0-2.0); DIFFERENTIAL COMMENT 0; EOSINOPHILS % 2.9 % (0.0-5.0); HEMATOCRIT. 27.6 % (42.0-52.0); HEMOGLOBIN. 8.8 g/dL (14.0-18.0); LYMPHOCYTES % 16.1 % (20.0-50.0); MEAN CORPUSCULAR HEMOGLOBIN 28.1 pg (28.0-32.0); MEAN CORPUSCULAR VOLUME 88.1 fL (80.0-94.0); MEAN PLATELET VOLUME 12.3 fl (7.4-10.4); MONOCYTES % 9.6 % (2.0-8.0); NEUTROPHILS % 70.2 % (40.0-76.0); PLATELET 134 x1000/uL (130-400); RED BLOOD CELL COUNT 3.13 mill/uL (4.7-6.1); RED CELL DISTRIBUTION WIDTH 17.9 % (11.6-14.6); WHITE BLOOD COUNT 6.8 x1000/uL (4.5-11.0)
[2024-10-25 08:00] VITALS: BP 145/100; PULSE 95; RESP 20; TEMP 36.4; O2SAT 100
[2024-10-25 08:10] LABS: CHLORIDE 104 mEq/L (98-107); SODIUM 142 mEq/L (136-145)
[2024-10-25 08:11] LABS: CALCIUM 8.9 mg/dL (8.7-10.4); CARBON DIOXIDE 32 mEq/L (21-32)
[2024-10-25 08:16] LABS: GLUCOSE 77 mg/dL (70-105); UREA NITROGEN BLOOD 25 mg/dL (9-23)
[2024-10-25 16:00] VITALS: BP 135/79; PULSE 77; RESP 20; TEMP 36.3; O2SAT 100
[2024-10-25 18:00] VITALS: BP 135/79; PULSE 77; RESP 20; TEMP 36.3; O2SAT 100
[2024-10-25 20:00] VITALS: BP 151/97; PULSE 61; RESP 18; TEMP 36.6; O2SAT 100
[2024-10-26] VITALS: BP 135/91; PULSE 77; RESP 19; TEMP 36.6; O2SAT 97
[2024-10-26] MEDS: LORAZEPAM 1MG TABLET PO NR (03:01)
[2024-10-26] MEDS: MELATONIN 3MG TABLET PO NR (03:02)
[2024-10-26 08:00] VITALS: BP 133/94; PULSE 79; RESP 19; TEMP 36.8; O2SAT 98
[2024-10-26 12:00] VITALS: BP 140/72; PULSE 73; RESP 19; TEMP 36.7; O2SAT 98
[2024-10-26 16:00] VITALS: BP 136/70; PULSE 70; RESP 19; TEMP 36.9; O2SAT 98
[2024-10-26] MEDS: LORAZEPAM 1MG TABLET PO PRN (16:09)
[2024-10-26 20:00] VITALS: BP 109/58; PULSE 72; RESP 20; TEMP 36.7; O2SAT 97
[2024-10-27] VITALS: BP 127/98; PULSE 84; RESP 22; TEMP 36.4; O2SAT 95
[2024-10-27 08:00] VITALS: BP 141/95; PULSE 99; RESP 19; TEMP 36.8; O2SAT 98
[2024-10-27 12:00] VITALS: BP 129/80; PULSE 102; PULSE 99; RESP 19; TEMP 36.8; O2SAT 98
[2024-10-27] MEDS: LORAZEPAM 2MG/ML UD SYRINGE IM PRN ×2 (15:38→20:11)
[2024-10-27 16:00] VITALS: BP 127/82; PULSE 110; RESP 19; TEMP 36.9; O2SAT 98
[2024-10-27] MEDS: HALOPERIDOL LACTATE 5MG/ML VIAL IM PRN (16:58)
[2024-10-27 20:00] VITALS: BP 151/93; PULSE 92; RESP 19; TEMP 36.4; O2SAT 98
[2024-10-28] VITALS: BP 141/99; PULSE 99; RESP 19; TEMP 36.6; O2SAT 98
[2024-10-28 04:00] VITALS: BP 142/94; PULSE 82; RESP 18; TEMP 36.8; O2SAT 95
[2024-10-28 08:00] VITALS: BP 136/95; PULSE 75; RESP 20; TEMP 36.3; O2SAT 95
[2024-10-28 12:00] VITALS: BP 122/81; PULSE 60; RESP 20; TEMP 36.6; O2SAT 100
[2024-10-28] MEDS: OXCARBAZEPINE 150MG TABLET PO SCH (13:20)
[2024-10-28 16:00] VITALS: BP 131/57; PULSE 81; RESP 19; TEMP 36.1; O2SAT 95
[2024-10-29 08:00] VITALS: BP 159/79; PULSE 90; RESP 19; TEMP 36.8; O2SAT 99
[2024-10-29 12:00] VITALS: BP 150/69; PULSE 89; RESP 19; TEMP 36.8; O2SAT 98
[2024-10-29 16:00] VITALS: BP 149/79; PULSE 91; RESP 19; TEMP 37; O2SAT 99
[2024-10-29 19:32] LABS: CLARITY URINE CLEAR (CLEAR); COLOR URINE YELLOW (YELLOW); GLUCOSE URINE NEGATIVE (NEGATIVE); KETONES URINE NEGATIVE (NEGATIVE); LEUKOCYTE ESTERASE URINE NEGATIVE (NEGATIVE); NITRITE URINE NEGATIVE (NEGATIVE); OCCULT BLOOD URINE NEGATIVE (NEGATIVE); PROTEIN URINE NEGATIVE (NEGATIVE); SPECIFIC GRAVITY URINE 1.013 (1.005-1.030); UROBILINOGEN URINE 0.2 E.U./dL (0.2-1.0)
[2024-10-29 20:00] VITALS: BP 126/91; PULSE 93; RESP 18; TEMP 37.2; O2SAT 98
[2024-10-30] VITALS: BP 131/91; PULSE 77; RESP 17; TEMP 36.6; O2SAT 98
[2024-10-30 04:00] VITALS: BP 141/96; PULSE 96; RESP 17; TEMP 36.9; O2SAT 97
[2024-10-30 08:00] VITALS: BP 159/86; PULSE 89; RESP 20; TEMP 36.6; O2SAT 99
[2024-10-30 12:00] VITALS: BP 137/87; PULSE 70; RESP 18; TEMP 36.8; O2SAT 97
[2024-10-30] MEDS: HALOPERIDOL LACTATE 5MG/ML VIAL IM NR ×2 (15:58→16:39)
[2024-10-30] MEDS: DIPHENHYDRAMINE 50MG/ML VIAL IM NR ×2 (15:58→16:39)
[2024-10-30] MEDS: LORAZEPAM 2MG/ML UD SYRINGE IM NR ×2 (15:59→16:39)
[2024-10-30 16:00] VITALS: BP 133/103; PULSE 99; RESP 18; TEMP 36.8; O2SAT 97; O2SAT 99
[2024-10-30] MEDS ORDERED: LORAZEPAM 2MG/ML UD SYRINGE IM NR (16:00)
[2024-10-30] MEDS ORDERED: DIPHENHYDRAMINE 50MG/ML VIAL IM NR (16:00)
[2024-10-30 20:00] VITALS: BP 142/89; PULSE 67; RESP 18; TEMP 36.6; O2SAT 95
[2024-10-30] MEDS: RISPERIDONE 1MG TABLET PO SCH (20:46)
[2024-10-31] VITALS: BP 130/93; PULSE 80; RESP 19; TEMP 36.4; O2SAT 100
[2024-10-31 04:00] VITALS: BP 136/94; PULSE 75; RESP 18; TEMP 36.6; O2SAT 98
[2024-10-31 08:00] VITALS: BP 135/90; PULSE 74; RESP 18; TEMP 36.3; O2SAT 96
[2024-10-31 19:12] VITALS: BP 128/59; PULSE 92; RESP 18; TEMP 36.2; O2SAT 95
[2024-10-31 20:00] VITALS: BP 124/82; PULSE 84; RESP 18; TEMP 36.5; O2SAT 96
[2024-11-01] VITALS: BP 95/71; PULSE 77; RESP 19; TEMP 36.6; O2SAT 98
[2024-11-01 04:00] VITALS: BP 157/109; PULSE 83; RESP 20; TEMP 36.3; O2SAT 96
[2024-11-01 08:00] VITALS: BP 161/116; PULSE 101; RESP 20; TEMP 36; O2SAT 98
[2024-11-01] MEDS ORDERED: HYDR-459 MT (09:07)
[2024-11-01] MEDS ORDERED: ABIL10 MT (09:07)
[2024-11-01] MEDS ORDERED: LISI10TA26 MT (09:07)
[2024-11-01] MEDS ORDERED: SERT50TA MT (09:07)
[2024-11-01] MEDS: NICOTINE 7MG PATCH TD SCH (09:50)
[2024-11-01 12:00] VITALS: BP 122/83; PULSE 119; RESP 19; TEMP 36.2; O2SAT 98
[2024-11-01 16:00] VITALS: BP 135/96; PULSE 73; RESP 20; TEMP 36.2; O2SAT 99
[2024-11-01] MEDS ORDERED: HYDROXYZINE 25MG TABLET PO PRN (16:15)
[2024-11-01] MEDS: SERTRALINE HCL 50MG TABLET PO SCH (16:41)
[2024-11-01 18:57] LABS: BASOPHILS % 1.3 % (0.0-2.0); DIFFERENTIAL COMMENT 0; EOSINOPHILS % 4.3 % (0.0-5.0); HEMATOCRIT. 29.2 % (42.0-52.0); HEMOGLOBIN. 9.4 g/dL (14.0-18.0); MEAN CORPUSCULAR HEMOGLOBIN 28.3 pg (28.0-32.0); MEAN CORPUSCULAR HGB CONC 32.1 g/dL (31.0-37.0); MEAN CORPUSCULAR VOLUME 88.3 fL (80.0-94.0); MEAN PLATELET VOLUME 12.4 fl (7.4-10.4); MONOCYTES % 9.5 % (2.0-8.0); NEUTROPHILS % 72.9 % (40.0-76.0); PLATELET 142 x1000/uL (130-400); RED BLOOD CELL COUNT 3.31 mill/uL (4.7-6.1); RED CELL DISTRIBUTION WIDTH 17.7 % (11.6-14.6); WHITE BLOOD COUNT 6.5 x1000/uL (4.5-11.0)
[2024-11-01 19:05] LABS: CARBON DIOXIDE 28 mEq/L (21-32); CHLORIDE 103 mEq/L (98-107); POTASSIUM 3.6 mEq/L (3.5-5.1); SODIUM 140 mEq/L (136-145)
[2024-11-01 19:06] LABS: CALCIUM 9.2 mg/dL (8.7-10.4)
[2024-11-01 19:11] LABS: CREATININE 1.1 mg/dL (0.6-1.3); GLUCOSE 85 mg/dL (70-105); UREA NITROGEN BLOOD 27 mg/dL (9-23)
[2024-11-01 19:12] LABS: ALANINE AMINOTRANSFERASE 23 IU/L (10-49); ALBUMIN 3.4 g/dL (3.2-4.8); ASPARTATE AMINOTRANSFERASE 26 IU/L (<34)
[2024-11-01 19:13] LABS: BILIRUBIN TOTAL 0.9 mg/dL (0.1-1.0); CREATINE KINASE 496 IU/L (46-171); PROTEIN TOTAL 6.2 g/dL (6.0-8.3)
[2024-11-01 20:00] VITALS: BP 118/82; PULSE 81; RESP 19; TEMP 36.5; O2SAT 97
[2024-11-01] MEDS ORDERED: DIVALPROEX SODIUM 500MG DR TABLET PO SCH (21:00)
[2024-11-01] MEDS ORDERED: ARIPIPRAZOLE 5MG TABLET PO SCH (21:00)
[2024-11-01] MEDS: ARIPIPRAZOLE 5MG TABLET PO SCH (21:20)
[2024-11-02] VITALS: BP 126/88; PULSE 82; RESP 19; TEMP 36.6; O2SAT 98
[2024-11-02 04:00] VITALS: BP 128/80; PULSE 80; RESP 19; TEMP 36.7; O2SAT 98
[2024-11-02 08:00] VITALS: BP 129/78; PULSE 74; RESP 19; TEMP 36.8; O2SAT 98
[2024-11-02 12:00] VITALS: BP 141/88; PULSE 73; RESP 19; TEMP 36.8; O2SAT 98
[2024-11-02 16:00] VITALS: BP 146/80; PULSE 77; RESP 19; TEMP 36.8; O2SAT 98
[2024-11-02 20:00] VITALS: BP 139/98; PULSE 76; RESP 18; TEMP 36.4; O2SAT 98
[2024-11-03] VITALS (7 sets, daily range): BP systolic 139–153; BP diastolic 99–110; PULSE 68–79; RESP 18–19; TEMP 36.4–36.9; O2SAT 98–99
== END 2024-11-03 16:40 | DRG 720 ==
LOC: ER 20:13 → MICUSO 23:12 → EDBD 23:12 → EDBEDREQTM 09-25 00:45 → EDBEDREQ 09-25 00:45 → 3WST 09-25 14:48 → MICUSO 09-30 16:44 → 5EST 10-03 23:21 → 8EST 10-09 19:10
PROVIDERS: ADMIT Internal Medicine; ATTEND Internal Medicine
PROC: 30233N1 Transfusion of Nonautologous Red Blood Cells into Peripheral Vein, Percutaneous Approach (ICD-10-PCS; principal; 2024-10-04)
DX: A41.9 Sepsis, unspecified organism (principal); J96.01 Acute respiratory failure with hypoxia; G92.8 Other toxic encephalopathy; I50.23 Acute on chronic systolic (congestive) heart failure; I21.A1 Myocardial infarction type 2; K57.31 Diverticulosis of large intestine without perforation or abscess with bleeding; I47.19 Other supraventricular tachycardia; I48.91 Unspecified atrial fibrillation; E86.0 Dehydration; I48.92 Unspecified atrial flutter; L03.115 Cellulitis of right lower limb; L03.116 Cellulitis of left lower limb; M79.89 Other specified soft tissue disorders; F15.129 Other stimulant abuse with intoxication, unspecified; Z59.00 Homelessness unspecified; F10.139 Alcohol abuse with withdrawal, unspecified; I87.2 Venous insufficiency (chronic) (peripheral); D64.9 Anemia, unspecified; N17.9 Acute kidney failure, unspecified; R65.20 Severe sepsis without septic shock; E87.6 Hypokalemia; I42.0 Dilated cardiomyopathy; E83.42 Hypomagnesemia; F17.210 Nicotine dependence, cigarettes, uncomplicated; F39 Unspecified mood [affective] disorder; N40.0 Benign prostatic hyperplasia without lower urinary tract symptoms; F41.9 Anxiety disorder, unspecified; E87.20 Acidosis, unspecified; Y90.9 Presence of alcohol in blood, level not specified; K59.00 Constipation, unspecified; R13.10 Dysphagia, unspecified; Z78.1 Physical restraint status; Z79.899 Other long term (current) drug therapy; Z88.1 Allergy status to other antibiotic agents; Z91.199 Patient's noncompliance with other medical treatment and regimen due to unspecified reason
CPT/HCPCS: 36415; 36600; 70551; 71045; 74176; 76705; 76770; 76870; 78278; 80048; 80053; 80061; 80076; 80162; 80202; 80305; 80320; 81003; 82140; 82247; 82270; 82375; 82550; 82553; 82607; 82728; 82746; 82805; 82962; 83036; 83540; 83550; 83605; 83735; 83880; 84100; 84132; 84145; 84439; 84443; 84481; 84484; 85014; 85018; 85025; 85027; 85044; 85379; 85651; 86705; 86709; 86850; 86900; 86920; 87340; 93005; 93306; 93970; 93976; 94070; 94640; 94664; 97162; 99291; A4606; A6261; A9560; J0282; J1200; J1630; J1650; J1940; J2060; J2270; J2354; J2470; J2543; J3370; J3411; J3475; J3480; J3490; J7030; J7042; J7050; J7060; J7070; J7608; P9016; Q9957; G0480